=== PATIENT | male | born 1990 | race Two or more races ===

== ENCOUNTER 2021-08-21 02:08 | Emergency (ER) | payer MEDICAID, OTHER ==
[~2021-08-21] VITALS: Ht 177.8 cm; Wt 83.0 kg
[2021-08-21 02:09] VITALS: BP 130/79
[2021-08-21] MEDS ORDERED: LIDOCAINE VISCOUS 2% 15ML UD MT ONE (02:45)
== END 2021-08-21 03:30 | disposition home or self-care (01) ==
LOC: ER 02:08
DX: T16.1XXA Foreign body in right ear, initial encounter (principal); W22.8XXA Striking against or struck by other objects, initial encounter; Y93.89 Activity, other specified; Y92.89 Other specified places as the place of occurrence of the external cause; Y99.8 Other external cause status
CPT/HCPCS: 69209